=== PATIENT | male | born 1990 | race Caucasian/White ===

== ENCOUNTER → 2024-02-17 06:51 | Outpatient (REF) | payer OTHER, SELFPAY | LOC: MRI 3T 06:51 | PROVIDERS: ATTENDING PHYSICIAN Psychiatry & Neurology Neurology; FAMILY PHYSICIAN Family Medicine | DX: R20.9 Unspecified disturbances of skin sensation (principal) | CPT/HCPCS: 72141 ==

== ENCOUNTER → 2025-01-14 06:55 | Outpatient (REF) | payer OTHER, SELFPAY | LOC: PAVMRI 06:55 | PROVIDERS: ATTENDING PHYSICIAN Orthopaedic Surgery Sports Medicine; FAMILY PHYSICIAN Internal Medicine Pulmonary Disease | DX: M25.511 Pain in right shoulder (principal) | CPT/HCPCS: 73221 ==

== ENCOUNTER 2025-07-19 22:29 | Emergency (ER) | payer OTHER, SELFPAY ==
[2025-07-19 22:33] VITALS: BP 127/89
--- NOTE | 2025-07-19 23:26 | ED.GENMED ---
History of Present Illness
General
Chief Complaint: Musculo-Skeletal Complaint
Source: patient
Exam Limitations: none
Time Seen by Provider: 07/19/25 23:23
Nursing documentation reviewed up to this point in time: agreed with
History of Present Illness
History of Present Illness:
Note:
CHIEF COMPLAINT(S)
Fall and inability to bear weight on the left ankle.
HISTORY OF PRESENT ILLNESS
The patient is a 34-year with past medical history of cystic fibrosis-old male who presents today with right lateral ankle pain following a fall downstairs. He reports that he was walking down the stairs outside when he fell down a few, resulting in
hitting his ankle on the concrete curb. After the fall, the patient has been unable to put full weight on the right ankle and describes radiating pain in the foot, although no discomfort extends up the leg. There is no numbness felt in the affected
foot. The patient denies any additional trauma or injury to the knee, hip, or head and does not report any other symptoms such as dizziness or tingling sensations elsewhere. He did not loose consciousness. He currently does not follow with an
orthopedist. He did not take anything for pain. Since the fall, the patient has been hopping around without bearing weight on the injured ankle.
PHYSICAL EXAM
General: Alert, in no acute distress.
Skin: Warm, dry. Brisk capillary refill.
Head: Normocephalic, atraumatic.
Neck: Supple, trachea midline.
Eye Ears, nose, mouth and throat: Oral mucosa moist.
Cardiovascular: Regular rate. Normal peripheral perfusion, No edema.
Respiratory: Respirations are non-labored. No respiratory distress.
Gastrointestinal: Abdomen nondistended.
Musculoskeletal: Right lateral ankle swelling noted, pain with varus stress, no tenderness to the dorsum of the foot or the proximal tibia/fibula. No pain with flexion/extension of the right knee. No ecchymosis.
Neurological: Alert and oriented, No focal neurological deficit observed. CN II-XII intact. Sensation intact.
Psychiatric: Cooperative, appropriate mood & affect.
DIFFERENTIAL DIAGNOSIS
The Differential Diagnosis includes, in no particular order and is not limited to:
1. Ankle fracture
2. Ankle sprain
3. Soft tissue injury
4. Contusion
5. Muscle strain
6. Ligament tear
7. Tendon injury
8. Peripheral neuropathy secondary to trauma
9. Bone bruise
10. Joint dislocation
LABS
Not indicated
CHART REVIEW
Reviewed ER physician documentation from 07/14/2018, patient complaining of mid epigastric pain, is discharged to follow-up with GI, did have endoscopy with revealed normal-appearing esophagus with mild gastritis
Reviewed external medical summary, reviewed most recent notes
IMAGING
X-ray reviewed by my attending and I, no acute bony abnormality, no dislocation
MDM/DISPOSITION
34-year-old male past medical history of CF presents to ER today with concerns of right lateral ankle pain following a fall. He has no other associated injuries. On exam, he is neurovascularly intact and has right lateral ankle swelling and pain
with varus stress.
His x-ray shows no acute bony abnormalities, no acute fracture or dislocation.
Suspect ankle sprain. Patient will be placed in an air splint, discussed immobilization and nonweightbearing with slow transition to weightbearing as tolerated. Discussed follow-up with orthopedics. Discussed strict return precautions. Patient
stable for discharge.
Past History
Past History
ED Past Medical History: Other (Mild mutation with cystic fibrosis)
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
Social History
Tobacco: Non-smoker
Alcohol: Occasional
Drug: None
Personal: Single
Living: with family
Employment: Employed ([employer])
Family History
Family History: Other (GF w/ colon ca t 84 y/o and alive); Negative CAD
Review of Systems
Review of Systems
All Other Systems: ROS reviewed and negative except as documented in HPI and ROS
Phy Exam
Physical Exam
Physical Exam:
see HPI
Course
Orders/Labs/Results
Orders:
Orders
07/20/25 00:10
CR Ankle - Right Min 3 Views * Urgent
Reason For Exam: right lateral ankle pain
07/20/25 00:42
Air Splint Right-Treatment ONCE
Crutches-Treatment ONCE
Vital Signs
Initial and Last Documented VS:
Initial Vital Signs
Temp Pulse Resp BP Pulse Ox
97.5 F 78 20 127/89 98
07/19/25 22:33 07/19/25 22:33 07/19/25 22:33 07/19/25 22:33 07/19/25 22:33
Last Documented Vital Signs
Temp Pulse Resp BP Pulse Ox
97.5 F 72 16 141/89 99
07/19/25 22:33 07/20/25 01:21 07/20/25 01:21 07/20/25 01:21 07/20/25 01:21
*Pulse Oximetry
SaO2: 98
Oxygen Mode of Delivery: Room air
Patient hypoxic: no
*Critical Care Note
Total Time (30-74mins, 75-104mins- exclusive of procedures): Not Applicable
ED Attending Note
-
Portions of this chart may have been created with voice recognition software.� Occasional wrong word or��sound alike� substitutions may have occurred due to the inherent limitations of voice recognition software.
Discharge Plan
Departure
Patient Disposition: Home (Routine Discharge)
Date of Disposition: 07/20/25
Time of Disposition: 00:52
Patient with high blood pressure during this ER visit?: Yes
Condition: Good
Discharge Problem:
Acute right ankle pain
Instructions: Ankle sprain - ED (DC), BLOOD PRESSURE
Prescriptions:
No Action
multivitamin 1 EACH tablet
1 ea PO Daily
ergocalciferol (vitamin D2) 400 UNIT tablet
PO Daily
albuterol sulfate 1 PUFF HFA aerosol inhaler
2 puff inhalation R Q4HPRN PRN (Reason: Wheezing)
fluticasone propionate [Flovent HFA] 1 PUFF HFA aerosol inhaler
2 puff inhalation R BID PRN (Reason: Wheezing)
omeprazole magnesium [Prilosec OTC] 20 MG tablet,delayed release (DR/EC)
40 mg PO Daily
ivacaftor [Kalydeco] 150 MG tablet
150 mg PO BID
[id number]-acjiqxr (pork) [Zenpep] 1 CAPSULE capsule,delayed release(DR/EC)
1 cap PO PER PROTOCOL
Patient Comments:
With Meals
pantoprazole 40 MG tablet,delayed release (DR/EC)
40 mg PO DAILY Qty: 14 0RF
sucralfate 1 GM/10 ML suspension
1 gm PO ACHS Qty: 30 0RF
Referrals:
Tayo Anderson MD [Family Provider, Internal Medicine]
Jayden Blank DPM [Active, Podiatry] - Call in 1-3 days for appt
Activity Restrictions/Additional Instructions:
Please avoid weight bearing for 48 hours. After this, you can use crutches and attempt to weight-bear as tolerated as you are feeling better. Please keep your ankle elevated. You can use Jevon wrap's to help with swelling. You can also use ice.
You to alternate Tylenol and Motrin for pain.
Please call attached number to schedule follow-up appointment with Ortho/podiatry.
PLEASE RETURN TO ER SHOULD YOU DEVELOP ACUTE WORSENING OF YOUR SYMPTOMS, LOSS OF SENSATION, PALLOR, OR ANY OTHER SIGNS OR SYMPTOMS WORRISOME TO YOU.
Interventions
Interventions:
*Risk Screen - Suicide Last Done: 07/19/25 23:39
*General Assessment Last Done: 07/19/25 22:33
*Neglect/Abuse Screening Last Done: 07/19/25 23:37
*ED COVID-19 Vaccine History Last Done: 07/19/25 23:36
*ED Influenza Vaccine History Last Done: 07/19/25 23:36
[facility] Fall Risk Assessment Tool Last Done: 07/19/25 23:35
*Nursing Disposition Last Done: 07/20/25 01:21
ED-Musculoskeletal Assessment Last Done: 07/19/25 23:34
Discharge Date and Time
Discharge Date/Time: 07/20/25 01:05
Print Language: [id number]
[2025-07-19 23:36] VITALS: BMI 31.5
[2025-07-20 00:45] VITALS: BP 141/89
[2025-07-20 01:21] VITALS: BP 141/89
== END 2025-07-20 01:05 | disposition home or self-care (01) ==
LOC: EMR 22:29
PROVIDERS: EMERGENCY PHYSICIAN Emergency Medicine; FAMILY PHYSICIAN Internal Medicine Pulmonary Disease
DX: S99.911A Unspecified injury of right ankle, initial encounter (principal); W10.9XXA Fall (on) (from) unspecified stairs and steps, initial encounter
CPT/HCPCS: 29515; 99283; 73610